=== PATIENT | male | born 1995 | race African-American/Black ===

== ENCOUNTER 2017-02-04 02:58 | Emergency (ER) | payer MEDICAID ==
[~2017-02-04] VITALS: Ht 172.7 cm; Wt 56.5 kg
[2017-02-04 03:00] VITALS: BP 120/59; PULSE 80; RESP 18; TEMP 97.9; O2SAT 99
[2017-02-04 03:13] VITALS: BP 127/69; PULSE 63; RESP 14; O2SAT 98
--- NOTE | 2017-02-04 03:37 | PD ---
HPI Chief Complaint: Abdominal Pain Time Seen by Provider: 03:18 Travel History International Travel<30 days: No Contact w/Intl Traveler<30days: No Traveled to known affect area: No History of Present Illness HPI This patient complains of burning sensation in his epigastrium. Duration 8 hours. Symptoms severity is mild to moderate. No alleviating factors. He says he vomited prior to arrival. No diarrhea. No lower quadrant pains. Not having any fever. PFSH Past Medical History Diminished Hearing: No GERD: Yes Respiratory: Yes (Asthma) Tetanus Vaccination: < 5 Years Influenza Vaccination: No Past Surgical History Abdominal Surgery: Yes (abdominal surgery x2) Social History Alcohol Use: No Tobacco Use: No Substance Use: No Allergies-Medications (Allergen,Severity, Reaction): Coded Allergies: No Known Drug Allergies (Verified Allergy, Unknown, 02/04/17) Reported Meds & Prescriptions Reported Meds & Active Scripts Active No Active Prescriptions or Reported Medications Review of Systems General / Constitutional: No: Fever Eyes: No: Visual changes HENT: No: Headaches Cardiovascular: No: Chest Pain or Discomfort Respiratory: No: Shortness of Breath Gastrointestinal: Positive: Nausea, Vomiting, Abdominal Pain Genitourinary: No: Dysuria Musculoskeletal: No: Pain Skin: No Rash Neurologic: No: Weakness Psychiatric: No: Depression Endocrine: No: Polydipsia Hematologic/Lymphatic: No: Easy Bruising Physical Exam Narrative GENERAL: Well-nourished, well-developed patient in no apparent distress. SKIN: Focused skin assessment reveals no rash and nodules. Skin is Warm and dry. HEAD: Atraumatic. Normocephalic. EYES: Pupils equal and round. No scleral icterus. No injection or drainage. ENT: No nasal bleeding or discharge. Mucous membranes pink and moist. NECK: Trachea midline. No JVD. CARDIOVASCULAR: Regular rate and rhythm. No murmur appreciated. RESPIRATORY: No accessory muscle use. Clear to auscultation. Breath sounds equal bilaterally. GASTROINTESTINAL: Abdomen soft, mild epigastric tenderness without rebound or guarding, nondistended. Hepatic and splenic margins not palpable. MUSCULOSKELETAL: No obvious deformities. No clubbing. No cyanosis. No edema. NEUROLOGICAL: Awake and alert. No obvious cranial nerve deficits. Motor grossly within normal limits. Normal speech. PSYCHIATRIC: Appropriate mood and affect; insight and judgment seems a bit weak . Data Data Last Documented VS Vital Signs Date Time Temp Pulse Resp B/P (MAP) Pulse Ox O2 Delivery O2 Flow Rate FiO2 02/04/17 03:13 63 14 127/69 (88) 98 Room Air 02/04/17 03:00 97.9 Orders Orders Al-Mag Hy-Si 40-40-4 Mg/Ml Liq (Mag-Al P (02/04/17 03:45) Lidocaine 2% Viscous (Xylocaine 2% Visco (02/04/17 03:45) Ondansetron Odt (Zofran Odt) (02/04/17 03:45) MDM Medical Decision Making Medical Screen Exam Complete: Yes Emergency Medical Condition: Yes Medical Record Reviewed: Yes Differential Diagnosis Differential diagnosis includes pancreatitis, biliary colic, hepatitis, GERD, peptic ulcer disease. Narrative Course I have reviewed the patient's electronic medical record. I recommended that we place an IV and then we can start with some lab studies including CBC and metabolic profile and LFTs and lipase. We could then give him some medication for symptom relief. However the patient declines. He refuses to have IV placed or any studies done He says that he only wants Some medication now to make him feel better I explained this was not recommended nor realistic but he absolutely refuses I gave him a dose of oral Zofran and Maalox/lidocaine combination Prescription for Zofran given and recommendation that he take Zantac twice daily and follow with primary care to discuss the situation Diagnosis Primary Impression: Epigastric pain Additional Instructions: The patient was advised to follow up with their physician and return if they worsen. Take twice a day Zantac which is [id number] Med/Other Pt SpecificInfo: Prescription(s) given Scripts Ondansetron (Zofran) 4 Mg Tab 4 MG PO Q6HR Y for NAUSEA OR VOMITING, #12 TAB 0 Refills Prov: Nikolas Chatman MD 02/04/17 Disposition: 01 DISCHARGE HOME Condition: Stable Nikolas Chatman MD Feb 04, 2017 03:37
[2017-02-04] MEDS ORDERED: ALUMINUM/MAGNESIUM/SIMETH 30 ML CUP PO ONE (03:45)
[2017-02-04] MEDS ORDERED: LIDOCAINE VISCOUS 2% SOLN 15 ML UDC PO ONE (03:45)
[2017-02-04] MEDS ORDERED: ONDANSETRON ODT 4 MG TAB PO ONE (03:45)
[2017-02-04] MEDS ORDERED: ZOFR4TAB PO (04:03)
[2017-02-04] MEDS ORDERED: MORPHINE SULFATE 4 MG/ML INJ IV PUSH ONE (04:15)
[2017-02-04] MEDS ORDERED: ONDANSETRON HCL 4 MG/2 ML VIAL IVP ONE (04:15)
[2017-02-04] MEDS ORDERED: SODIUM CHLORIDE 0.9% FLUSH 10 ML FLUSH IV FLUSH PRN (04:15)
[2017-02-04 04:47] LABS: HEMATOCRIT 40.8 % (39.0-51.0); MEAN CELL VOLUME 86.2 FL (80.0-100.0); MEAN CORPUSCULAR HEMOGLOBIN 28.4 PG (27.0-34.0); MEAN CORPUSCULAR HGB CONC 32.9 % (32.0-36.0); PLATELET COUNT 328 TH/MM3 (150-450); RED BLOOD COUNT 4.73 MIL/MM3 (4.50-5.90); RED CELL DISTRIBUTION WIDTH 14.9 % (11.6-17.2); WHITE BLOOD COUNT 19.2 TH/MM3 (4.0-11.0)
[2017-02-04 04:48] LABS: HEMO FLAGS AUTO DIFF
[2017-02-04 04:57] LABS: ANION GAP 8 MEQ/L (5-15); AST (GOT) 15 U/L (15-39); BICARBONATE 27.9 MEQ/L (21.0-32.0); BLOOD UREA NITROGEN 6 MG/DL (7-18); CHLORIDE 103 MEQ/L (98-107); GLOMERULAR FILTRATION RATE 141 ML/MIN (>89); SODIUM (NA) 139 MEQ/L (136-145)
[2017-02-04 04:58] LABS: ALT (GPT) 16 U/L (9-52)
[2017-02-04 05:00] LABS: ALKALINE PHOSPHATASE 132 U/L (45-117); TOTAL BILIRUBIN ADULT 0.6 MG/DL (0.2-1.0)
[2017-02-04] MEDS ORDERED: IOHEXOL 350 MG/ML 10 ML VIAL (for RAD DIAG) IVCONTRAST ONE (05:03)
[2017-02-04 05:17] LABS: EOSINOPHILS 60 % (0-4); NEUTROPHIL # MANUAL DIFF 3.8 TH/MM3 (1.8-7.7); PLATELET ESTIMATE SMEAR NORMAL (NORMAL); PLATELET MORPHOLOGY NORMAL (NORMAL); POLYS (SEG NEUTROPHILS) 20 % (16-70); SCAN/DIFF FINAL DIFF MANUAL; WBC DIFF SAMPLE 100
--- NOTE | 2017-02-04 05:18 | RADRPT ---
EXAM DATE/TIME: 02/04/2017 04:57 [facility] COMPARISON: No previous studies available for comparison. INDICATIONS : Epigastric abdominal pain. IV CONTRAST: 70 cc Omnipaque 350 (iohexol) IV ORAL CONTRAST: No oral contrast ingested. RADIATION DOSE: 4.52 CTDIvol (mGy) MEDICAL HISTORY : Gastroesophageal reflux disease. SURGICAL HISTORY : Pelvic surgery. ENCOUNTER: Initial ACUITY: 1 day PAIN SCALE: 9/10 LOCATION: Epigastric. TECHNIQUE: Volumetric scanning of the abdomen and pelvis was performed. Using automated exposure control and ad justment of the mA and/or kV according to patient size, radiation dose was kept as low as reasonably achievable to obtain optimal diagnostic quality images. DICOM format image data is available electro nically for review and comparison. FINDINGS: Lung bases are clear. Several small suspected liver cysts present. Liver enhances slightly heterogene ously without suspicious mass identified. Small hiatal hernia. Spleen, adrenals, kidneys and pancreas unremarkable. No free fluid. No bowel obstruction. There is screw fixation across the left sacroiliac joint and anni te and screw fixation across the pubic symphysis. CONCLUSION: 1. No acute findings. Nonspecific mild heterogeneous enhancement of the liver with questionable perip ortal edema. Differential diagnosis includes hepatitis. Probable small liver cysts. 2. Previous fixation left sacroiliac joint and pubic symphysis. Chas Vazquez MD on February 04, 2017 at 5:10 Board Certified Radiologist. This report was verified electronically.
[2017-02-04 06:09] VITALS: BP 131/76; PULSE 82; RESP 14
== END 2017-02-04 06:16 | disposition home or self-care (01) ==
LOC: NEPC 02:58
DX: R10.13 Epigastric pain (principal); R11.2 Nausea with vomiting, unspecified; K21.9 Gastro-esophageal reflux disease without esophagitis; J45.909 Unspecified asthma, uncomplicated
CPT/HCPCS: 74177; 80053; 83690; 85007; 85027; 96374; 96375; 99285; J2270; J2405; Q9967

== ENCOUNTER 2017-04-15 22:47 | Emergency (ER) | payer MEDICAID ==
[~2017-04-15] VITALS: Ht 170.2 cm; Wt 55.0 kg
[~2017-04-15 22:47] MED LIST: PRED-503 PO; VENTAER INH
[2017-04-15 22:48] VITALS: BP 123/73; PULSE 71; RESP 16; TEMP 98.2; O2SAT 99
[2017-04-15 23:34] LABS: BACTERIA, URINE RARE /hpf; BLOOD, URINE SMALL (NEG); GLUCOSE,URINE NEG (NEG); KETONE, URINE NEG (NEG); MUCUS URINE FEW /lpf (OCC); NITRITE,URINE NEG (NEG); URINE COLOR YELLOW (YELLW/STRAW)
[2017-04-15 23:37] LABS: COMMENT (UR) CULTURE INDICATED; CULTURE IF INDICATED CULTURE INDICATED
[2017-04-15] MEDS ORDERED: CIPR-9 PO (23:44)
[2017-04-15] MEDS ORDERED: AZITHROMYCIN PWD FOR SUSP 1 GM PACKET PO ONE (23:45)
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
[2017-04-16 03:16] LABS: CHLAMYDIA PCR NOT DETECTED (NOT DETECT); NEISSERIA PCR DETECTED (NOT DETECT)
== END 2017-04-16 00:41 | disposition home or self-care (01) ==
LOC: NEPK 22:47
DX: N39.0 Urinary tract infection, site not specified (principal); N34.2 Other urethritis; A54.89 Other gonococcal infections; J45.909 Unspecified asthma, uncomplicated; K21.9 Gastro-esophageal reflux disease without esophagitis; Z79.899 Other long term (current) drug therapy
CPT/HCPCS: 81001; 87086; 87491; 87591; 96372; 99284; J0696

== ENCOUNTER 2017-09-01 22:21 | Emergency (ER) | payer MEDICAID ==
[~2017-09-01] VITALS: Ht 172.7 cm; Wt 55.0 kg
[~2017-09-01 22:21] MED LIST changes: +CIPR-9 PO
[2017-09-01 23:38] VITALS: BP 114/57; PULSE 89; RESP 18; TEMP 98.8; O2SAT 98
[2017-09-02] MEDS ORDERED: ACETAMINOPHEN/HYDROcodone 325 MG/5 MG TAB PO ONE (01:45)
[2017-09-02] MEDS ORDERED: IBUP-232 PO (02:23)
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
== END 2017-09-02 03:12 | disposition home or self-care (01) ==
LOC: NEPD 22:21
DX: R10.2 Pelvic and perineal pain (principal)
CPT/HCPCS: 72170; 99283

== ENCOUNTER 2017-09-17 15:31 | Emergency (ER) | payer SELFPAY ==
[~2017-09-17] VITALS: Ht 172.7 cm; Wt 57.0 kg
[~2017-09-17 15:31] MED LIST changes: +IBUP-232 PO
[2017-09-17 15:59] VITALS: BP 119/64; PULSE 95; RESP 18; TEMP 98.6; O2SAT 99
[2017-09-17] MEDS ORDERED: IBUPROFEN 800 MG TAB PO ONE (18:15)
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
[2017-09-17] MEDS ORDERED: IBUP-232 PO (18:33)
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
== END 2017-09-17 18:59 | disposition home or self-care (01) ==
LOC: NEPD 15:31
DX: S70.02XA Contusion of left hip, initial encounter (principal); J45.909 Unspecified asthma, uncomplicated; Y04.8XXS Assault by other bodily force, sequela
CPT/HCPCS: 73502; 99283